=== PATIENT | female | born 1970 | race Caucasian/White ===

== ENCOUNTER 2020-03-15 16:47 | Emergency (ER) | payer MEDICAID ==
[~2020-03-15] VITALS: Ht 162.6 cm; Wt 100.0 kg
[~2020-03-15 16:47] MED LIST: ALBU8HFA INH; NO HOME MEDS
[2020-03-15] MEDS ORDERED: TETanus/Pertussis (Acell)/Diphther VAC/PF (Tdap-Adult) 0.5ml syringe IMVAC ONE (17:20)
[2020-03-15] MEDS ORDERED: ibuprofen tablet 400 MG TABLET PO ONE (17:25)
[2020-03-15] MEDS ORDERED: ondansetron 4mg rapidly disintigrating tab PO ONE (18:45)
[2020-03-15] MEDS ORDERED: sulfamethoxazole/trimethoprim DS (800/160mg) tablet PO ONE (18:45)
[2020-03-15] MEDS ORDERED: SULF1TAB49 PO (18:49)
[2020-03-15 19:07] VITALS: BP 144/85
== END 2020-03-15 19:00 | disposition home or self-care (01) ==
LOC: ER 16:48
DX: L03.115 Cellulitis of right lower limb (principal); Z88.5 Allergy status to narcotic agent; Z79.899 Other long term (current) drug therapy
CPT/HCPCS: 90471; 90715; 93971; 99284